=== PATIENT | male | born 1985 | race African-American/Black ===

== ENCOUNTER 2019-02-05 05:11 | Emergency (ER) | payer SELFPAY ==
[~2019-02-05] VITALS: Ht 175.3 cm; Wt 82.2 kg
--- NOTE | 2019-02-05 05:40 | NUR ---
BIBSELF FROM HOME. AAOX4. NAD, BREATHING EVEN AND UNLABORED. AMBULATORY. C/O CHILLS TODAY BUT DENIES FEVER. PT ALSO STATES THAT HE HAS BEEN HAVING INSOMNIA X 3 MONTHS. PT ALSO STATES THAT HE HAS BEEN FEELING STRESS RECENTLTY. PT ALSO STATES THAT HE FEELS DEHYDRATED, PT STATES THAT HIS SKIN FEELS DRY THAT USUAL. NO CP. DENIES N/V/D. TO ER BED. AWAITING MD FOR [place].
--- NOTE | 2019-02-05 06:25 | NUR ---
EKG DONE. [employer] ADMINISTRATOR AT BEDSIDE FOR BLOOD DRAW
[2019-02-05 06:40] LABS: BASOPHILS % (AUTO) 0.6 % (0.0-2.0); EOSINOPHILS % (AUTO) 0.7 % (0.0-6.0); HEMATOCRIT 41 % (39-51); HEMOGLOBIN 13.6 g/dL (13.5-17.5); LYMPHOCYTES # (AUTO) 1.2 /CMM (0.8-4.8); LYMPHOCYTES % (AUTO) 21.6 % (20.0-44.0); MEAN CORPUSCULAR HGB CONC 33 g/dl (31.0-36.0); MEAN CORPUSCULAR VOLUME 82 fL (80-96); MONOCYTES # (AUTO) 0.5 /CMM (0.1-1.30); MONOCYTES % (AUTO) 9.3 % (2.0-12.0); NEUTROPHILS # (AUTO) 3.9 /CMM (1.8-8.9); NEUTROPHILS % (AUTO) 67.8 % (43.0-81.0); PLATELET COUNT (AUTO) 234 /CMM (150-450); RED BLOOD CELL COUNT(AUTO) 5.04 MIL/uL (4.5-6.0); WHITE BLOOD COUNT (AUTO) 5.7 K/uL (4.3-11.0)
[2019-02-05 06:52] LABS: CALCIUM, SERUM 8.6 mg/dL (8.5-10.1); CREATININE 0.9 mg/dL (0.6-1.3); POTASSIUM 3.5 mmol/L (3.5-5.1)
--- NOTE | 2019-02-05 07:09 | NUR ---
Patient discharged to home in stable condition. Written and verbal after care instructions given. Patient verbalizes understanding of instruction. Pt ambulatory with a steady gait
[2019-02-05 07:10] VITALS: BP 103/55
[2019-02-05 07:19] LABS: THYROID STIMULATING HORMONE 1.333 uIU/mL (0.358-3.74)
== END 2019-02-05 07:13 | disposition home or self-care (01) ==
LOC: ER 05:17
DX: G47.00 Insomnia, unspecified (principal)
CPT/HCPCS: 36415; 80048-TC; 84439-TC; 84443-TC; 85025-TC